=== PATIENT | male | born 1985 | race Caucasian/White ===

== ENCOUNTER 2021-02-18 17:24 | Emergency (ER) | payer OTHER, SELFPAY ==
--- NOTE | 2021-02-18 17:27 | ED.NECK ---
HPI - Neck Pain/Injury General Chief Complaint: Neck Pain/Injury Stated Complaint: pain in neck Time Seen by Provider: 02/18/21 17:28 Source: patient and RN notes reviewed History of Present Illness HPI Narrative: Patient is a 35-year-old male who presents the urgent care with complaints of left neck pain/strain. Patient states that 2 days ago he was lifting pretty heavy at the gym and then stretched yesterday morning hearing a pop in the left side of his neck . Patient states that since then he has been having some decreased range of motion due to pain. Patient states he has been putting icy hot on the area and using Aleve. Denies of any headaches or vision change. Denies of any fall or injury. No other acute complaints. No acute distress noted. Patient aware of the plan of care. Some parts of this dictation were generated by voice recognition software and may contain typographical and/or grammatical inaccuracies. Related Data Allergies Allergy/AdvReac Type Severity Reaction Status Date / Time No Known Allergies Allergy Unverified 02/20/18 12:22 Review of Systems Review of Systems: Narrative: CONSTITUTIONAL: Denies fever, chills, or sweats. EYES: Denies visual changes, redness, or discharge. ENT: Denies rhinorrhea, congestion, sore throat, or otalgia. Reports of left neck pain CARDIOVASCULAR: Denies chest pain, palpitations, or edema. RESPIRATORY: Denies cough or dyspnea. GASTROINTESTINAL: Denies abdominal pain, nausea, vomiting, or diarrhea. GENITOURINARY: Denies dysuria or hematuria. SKIN: Denies rash or itching. MUSCULOSKELETAL: Denies back pain, joint pain, or myalgia. NEUROLOGIC: Denies headache, numbness, or weakness. All other systems reviewed are negative, except as documented in HPI. PMFSH Comments At the time of my signature, I reviewed and agree with the nursing past medical, surgical, social, and family history. There is no relevant family history pertinent to the patient complaint. Exam Narrative: Exam Narrative: GENERAL: This is a well-nourished, well-developed patient, in no apparent distress. HEAD: normocephalic, atraumatic. EYES: PERRL. Sclera clear/white. Vision is grossly intact. EARS: External ears normal NOSE: External nose normal with no obvious nasal discharge, nares without redness, no rhinorrhea. THROAT: Mucous membranes moist NECK: mild left cervical tenderness with range of motion activity. Decreased range of motion with left flexion and chin tuck due to pain. No crepitus CARDIOVASCULAR: Regular rate and rhythm without murmurs, gallops, or rubs. RESPIRATORY: Clear to auscultation. Breath sounds equal bilaterally. No wheezes, rales, or rhonchi. SKIN: warm, intact with no suspicious lesions or rash, good texture and turgor. NEURO: awake, alert, and oriented to person, place and time. There were no obvious focal neurologic abnormalities. EXTREMITIES: No clubbing, cyanosis, or edema. Course Vital Signs Vital signs: Vital Signs Temperature 98.8 F 02/18/21 17:33 Pulse Rate 60 02/18/21 17:33 Respiratory Rate 18 02/18/21 17:33 Blood Pressure 126/77 02/18/21 17:33 Pulse Oximetry 100 02/18/21 17:33 Temperature 98.8 F 02/18/21 17:33 Pulse Rate 60 02/18/21 17:33 Respiratory Rate 18 02/18/21 17:33 Blood Pressure 126/77 02/18/21 17:33 Pulse Oximetry 100 02/18/21 17:33 Reviewed MDM - Neck Pain/Injury MDM Narrative Medical decision making narrative: Advised the patient to take the ibuprofen as needed for pain. Complete steroid regimen as prescribed. Use Flexeril as needed for muscle spasms/muscle relaxant. Take Flexeril prior to bedtime. Do not drive or operate heavy machinery while using the Flexeril. Be sure to eat and drink with your medications. Avoid any strenuous activity or heavy lifting, especially pushing/pulling and lifting above the head. Follow-up with your PCP within 2 to 5 days or for worsening symptoms or failure to improve. Differential Di
[2021-02-18 17:33] VITALS: BP 126/77; PULSE 60; RESP 18; TEMP 37.1; O2SAT 100
== END 2021-02-18 17:48 | disposition home or self-care (01) ==
PROVIDERS: Emergency Provider Nurse Practitioner Family
DX: S16.1XXA Strain of muscle, fascia and tendon at neck level, initial encounter (principal); X50.9XXA Other and unspecified overexertion or strenuous movements or postures, initial encounter
CPT/HCPCS: 99213; G0463

== ENCOUNTER 2023-03-06 14:19 | Emergency (ER) | payer OTHER, SELFPAY ==
[2023-03-06 14:27] VITALS: BP 155/99; PULSE 64; RESP 20; TEMP 35.9; O2SAT 100
--- NOTE | 2023-03-06 14:32 | ED.SKABFB ---
HPI - Skin/Abscess/Foreign Bdy General Chief complaint: Skin/Abscess/Foreign Body Stated complaint: RASH Time Seen by Provider: 03/06/23 14:32 Source: patient, RN notes reviewed and old records reviewed Mode of arrival: ambulatory Limitations: no limitations History of Present Illness HPI narrative: 37 year old male who presents to [facility] care with complaints of going camping over the weekend and then noting feeling itchy all over Sunday night with rash noted to the back of his right leg that is small red raised rash that is itchy. Patient has been using numbing spray to the rash area on his leg. Patient denies any shortness of breath or any trouble swallowing. MD complaint: rash Onset (ago): day(s) (2 days) Treatments prior to arrival: none Related Data Allergies Allergy/AdvReac Type Severity Reaction Status Date / Time No Known Allergies Allergy Unverified 03/06/23 14:31 Review of Systems Review of Systems: CONSTITUTIONAL: Denies fever, chills, or sweats. CARDIOVASCULAR: Denies chest pain, palpitations, or edema. RESPIRATORY: Denies cough or dyspnea. SKIN: Reports feeling itchy all over, has red raised rash to area on posterior aspect of right leg that is itchy MUSCULOSKELETAL: Denies joint pain or myalgia. NEUROLOGIC: Denies headache, numbness, or weakness. All systems reviewed & are unremarkable except as noted in HPI and below PMFSH Past Medical History Medical History (Updated 03/06/23 @ 16:08 by Karmen Stern NP) Finger fracture Surgical History Surgical History (Updated 03/06/23 @ 16:06 by Karmen Stern NP) History of placement of ear tubes Social History Social History Gender identity (if verbalized by the patient): Male Comments At time of signature, agree with nursing past medical, surgical, social and family history. There is no relevant family history pertinent to the presenting complaint Exam Narrative: GENERAL: Well-appearing, well-nourished, and in no acute distress. HEAD: Normocephalic, atraumatic. EYES: PERRLA, conjunctivae clear, and EOMI. ENT: Mucous membranes moist. Oropharynx without edema, erythema or lesions. NECK: Supple. No lymphadenopathy CHEST: Clear to auscultation. No respiratory distress. HEART: Regular rate and rhythm. SKIN: Warm, dry.? Patches of erythema and edema noted posterior aspect of right lower leg that is itching NEURO:? Alert and oriented x3. PSYCH: Normal mood and affect Course Course Emergency Course: Patient is aware of diagnosis, understands and agrees to treatment plan.? Anticipatory guidance given.? Patient agrees to follow-up as directed and is aware of reasons to seek care at the emergency department. Portions of this record may have been created with voice recognition software Level of Care: Express Care Visit Vital Signs Vital signs: Vital Signs Temperature 35.9 C L 03/06/23 14:27 Pulse Rate 64 03/06/23 14:27 Respiratory Rate 20 03/06/23 14:27 Blood Pressure 155/99 H 03/06/23 14:27 Pulse Oximetry 100 03/06/23 14:27 Oxygen Delivery Room Air 03/06/23 14:27 Temperature 35.9 C L 03/06/23 14:27 Pulse Rate 64 03/06/23 14:27 Respiratory Rate 20 03/06/23 14:27 Blood Pressure 155/99 H 03/06/23 14:27 Pulse Oximetry 100 03/06/23 14:27 Oxygen Delivery Room Air 03/06/23 14:27 Reviewed MDM - Skin/Abscess/Foreign Bdy MDM Narrative Medical decision making narrative: Does not appear at this time to be erythema multiforme, bullous, SJS, TEN; no evidence at this time to suggest RMSF, endocarditis or Lyme disease; patient looks well, nontoxic and is tolerating oral intake; no neurologic signs or symptoms; no headache, photophobia or neck pain; afebrile; appropriate for initial outpatient treatment; discussed the importance of follow-up, patient agrees; question, viral exanthema, contact dermatitis, allergic dermatitis, eczema, urticaria. No soft palate or uvula edema, no tong
== END 2023-03-06 14:48 | disposition home or self-care (01) ==
PROVIDERS: Emergency Provider Registered Nurse
DX: L23.7 Allergic contact dermatitis due to plants, except food (principal)
CPT/HCPCS: 99213; G0463